=== PATIENT | female | born 1955 | race African-American/Black ===

== ENCOUNTER 2018-11-05 18:43 | Emergency (ER) | payer SELFPAY ==
[~2018-11-05] VITALS: Ht 167.6 cm; Wt 100.2 kg
[2018-11-05 19:48] VITALS: Ht 167.6 cm; Wt 100.2 kg
[2018-11-05 21:36] VITALS: BP 185/108
== END 2018-11-05 21:36 | disposition home or self-care (01) ==
LOC: ED 18:43
DX: S13.9XXA Sprain of joints and ligaments of unspecified parts of neck, initial encounter (principal); S33.5XXA Sprain of ligaments of lumbar spine, initial encounter; I10 Essential (primary) hypertension; E11.9 Type 2 diabetes mellitus without complications; E03.9 Hypothyroidism, unspecified; Z88.1 Allergy status to other antibiotic agents; V49.49XA Driver injured in collision with other motor vehicles in traffic accident, initial encounter; Y93.I9 Activity, other involving external motion; Y92.413 State road as the place of occurrence of the external cause; Y99.8 Other external cause status
CPT/HCPCS: J1885